=== PATIENT | female | born 1995 | race Caucasian/White ===

== ENCOUNTER 2019-02-03 13:48 | Emergency (ER) | payer OTHER ==
[~2019-02-03] VITALS: Wt 55.7 kg
[2019-02-03 13:52] VITALS: Wt 55.7 kg
--- NOTE | 2019-02-03 13:58 | EN ---
Date/Time of Note Date/Time of Note DATE: 02/03/19 TIME: 13:56 ER Progress Note 23-year-old female with headache, body aches, back pain, cough. SIRS criteria in triage. GOOD SANTIAGO MD Feb 03, 2019 13:58
[2019-02-03] MEDS ORDERED: morphine 4 MG/ML VIAL IV STA (14:36)
[2019-02-03] MEDS ORDERED: ONDANSETRON 4 MG INJ IV STA (14:36)
[2019-02-03] MEDS ORDERED: SODIUM CHLORIDE 0.9% 1L BAG IV* STA (14:36)
[2019-02-03] MEDS ORDERED: ACETAMINOPHEN 500 MG TAB PO STA (14:36)
[2019-02-03] MEDS ORDERED: IBUPROFEN 600 MG TAB PO ONE (15:00)
--- NOTE | 2019-02-03 15:39 | ERD ---
ER Documentation Chief Complaint Chief Complaint HEADACHE CONGESTION AND BACK PAIN FOR THE PAST WEEK. MILD SOB . HPI This is a 23-year-old female with a nonsignificant past medical history presents ED with complaints of right low back pain and headache times 2 days. Admits to fevers and nausea. Denies cough, congestion, runny nose, sputum production, vomiting, diarrhea, cuts patient, hematemesis, melena, hematochezia, dysuria, hematuria and all other symptoms. No known drug allergies. ROS All systems reviewed and are negative except as per history of present illness. Allergies Allergies: Coded Allergies: No Known Allergy (Unverified , 02/03/19) FmHx Family History: No diabetes Physical Exam Vitals Vital Signs Date Temp Pulse Resp B/P (MAP) Pulse Ox O2 O2 Flow FiO2 Time Delivery Rate 02/03/19 98.9 73 16 99/53 (68) 100 Room Air 17:24 02/03/19 99.3 15:57 02/03/19 102.7 14:54 02/03/19 102.7 14:54 02/03/19 102.7 118 20 160/66 99 13:52 (97) Physical Exam Physical Exam Vitals signs: Reviewed by me. General: Well developed, well nourished, in no acute distress. Patient is awake and alert. Head: Normocephalic, atraumatic. Eyes: Normal conjunctiva, Pupils PERRLA, EOM intact grossly ENT: Pharynx is clear, Moist mucous membranes, external ears, nose and mouth normal, no tonsillar adenopathy, exudate or erythema, no kissing tonsils, no uvula deviation, tympanic membrane visualized bilaterally no bulging, erythema, purulent air-fluid line seen, normal nasal mucosa with no discharge Neck: Supple, no masses, lymphadenopathy or JVD Respiratory: Clear to auscultation bilaterally with no wheezing, rhonchi, rales, no distress Cardiovascular: RRR, no murmurs, rubs, or gallops Abdominal: Soft, non-tender, non-distended, no peritoneal signs : Deferred MSK: No edema, no unilateral swelling, 5/5 strength Back: No midline tenderness. Right CVA tenderness present Neurologic: Alert and oriented, moving all extremities, normal speech, no focal weakness, no cerebellar signs. Normal mentation Skin: warm and dry, No rash Psych: Normal mood Result Diagram: 02/03/19 1455 02/03/19 1455 Results 24 hrs Laboratory Tests Test 02/03/19 14:55 02/03/19 15:01 02/03/19 15:08 White Blood Count 13.0 10^3/ul Red Blood Count 4.34 10^6/ul Hemoglobin 13.2 g/dl Hematocrit 39.4 % Mean Corpuscular Volume 90.8 fl Mean Corpuscular Hemoglobin 30.4 pg Mean Corpuscular 33.5 g/dl Hemoglobin Concent Red Cell Distribution Width 13.2 % Platelet Count 278 10^3/UL Mean Platelet Volume 9.4 fl Immature Granulocytes % 0.300 % Neutrophils % 90.9 % Lymphocytes % 3.5 % Monocytes % 5.2 % Eosinophils % 0.0 % Basophils % 0.1 % Nucleated Red Blood Cells % 0.0 /100WBC Immature Granulocytes # 0.040 10^3/ul Neutrophils # 11.8 10^3/ul Lymphocytes # 0.5 10^3/ul Monocytes # 0.7 10^3/ul Eosinophils # 0.0 10^3/ul Basophils # 0.0 10^3/ul Nucleated Red Blood Cells # 0.0 10^3/ul Prothrombin Time 14.2 Sec Prothrombin Time Ratio 1.1 INR International 1.09 Normalized Ratio Activated Partial Thromboplast 26.1 Sec Time Urine Color YELLOW Urine Clarity CLOUDY Urine pH 7.0 Urine Specific [place] 1.005 Urine Ketones NEGATIVE mg/dL Urine Nitrite NEGATIVE mg/dL Urine Bilirubin NEGATIVE mg/dL Urine Urobilinogen NEGATIVE mg/dL Urine Leukocyte Esterase NEGATIVE [place]/ul Urine Microscopic RBC 2 /HPF Urine Microscopic WBC 8 /HPF Urine Squamous Epithelial Cells MANY /HPF Urine Bacteria FEW /HPF Urine Hemoglobin 1+ mg/dL Urine Glucose NEGATIVE mg/dL Urine Total Protein NEGATIVE mg/dl Sodium Level 137 mmol/L Potassium Level 3.7 mmol/L Chloride Level 102 mmol/L Carbon Dioxide Level 19 mmol/L Anion Gap 16 Blood Urea Nitrogen 8 mg/dl Creatinine 0.57 mg/dl Est Glomerular Filtrat > 60 mL/min Rate mL/min Glucose Level 126 mg/dl Calcium Level 9.8 mg/dl Total Bilirubin 0.6 mg/dl Direct Bilirubin 0.00 mg/dl Indirect Bilirubin 0.6 mg/dl Aspartate Amino Transf (AST/SGOT) 30 IU/L Alanine 13 IU/L Aminotransferase (ALT/SGPT) Alkaline Phosphatase 78 IU/L Troponin I < 0.012 ng/ml Total Protein 8.4 g/dl Albumin 4.6 g/dl Globulin 3.80 g/dl Albumin/Globulin Ratio 1.21 Lipase 86 U/L POC Venous Lactate 1.5 mmol/L POC Beta HCG, Qualitative NEGATIVE Current Medications Medications Dose Sig/Kenzie Start Time Status Last (Trade) Ordered Route PRN Stop Time Admin Dose Reason Admin Sodium 1,670 ml BOLUS OVER 2 02/03/19 DC 02/03/19 Chloride HOURS STAT 14:36 14:54 (NS) IV* 02/03/19 14:49 Morphine 4 mg ONCE STAT 02/03/19 DC 02/03/19 Sulfate IV 14:36 14:55 (morphine) 02/03/19 14:49 Ondansetron 4 mg ONCE STAT 02/03/19 DC 02/03/19 HCl (Zofran IV 14:36 14:55 Inj) 02/03/19 14:49 1,000 mg ONCE STAT 02/03/19 DC 02/03/19 Acetaminophen PO 14:36 14:54 (Tylenol 02/03/19 14:49 Tab) Ibuprofen 600 mg ONCE ONCE 02/03/19 DC 02/03/19 (Motrin) PO 15:00 14:54 02/03/19 15:01 Ceftriaxone 50 ml @ ONCE STAT 02/03/19 DC 02/03/19 Sodium 100 mls/hr IVPB 15:52 16:11 02/03/19 16:21 Procedures/MDM EKG, MONITORS, & DIAGNOSTIC IMAGING: EKG read by juliae: Rate/Rhythm: Regular rate and rhythm at a rate of 100 Intervals: Normal Impression: No evidence of ischemia or arrhythmia No ST elevation, no peak T waves, no widened QRS, no QT interval prolongation [place] [id number] Radiology Main Line: [phone] DIAGNOSTIC IMAGING REPORT Patient: NAFISA LAU : 1995 Age: 23 Sex: F MR #: [id number] DOS: 02/03/19 1436 Ordering MD: AMARILIS STOKES PA-C Location: [facility] Room/Bed: PROCEDURE: XR Chest. CLINICAL INDICATION: Fever TECHNIQUE: Single portable AP view of the chest was obtained COMPARISON: none FINDINGS: Lungs are unchanged. No pleural effusion or pneumothorax. Heart and mediastinum are stable. ... No acute musculoskeletal abnormalities. Lines and tubes are unchanged. IMPRESSION: No acute abnormalities. RPTAT: AA Physician Nikky Date Time Electronically viewed and signed by Krzysztof Gr Physician on 02/03/2019 15:43 RB/ CC: AMARILIS STOKES PA-C [id number] [place] [id number] Radiology Main Line: [phone] DIAGNOSTIC IMAGING REPORT Patient: NAFISA LAU : 1995 Age: 23 Sex: F MR #: [id number] DOS: 02/03/19 1555 Ordering MD: AMARILIS STOKES PA-C Location: [facility] Room/Bed: PROCEDURE: CT abdomen and pelvis without contrast. CLINICAL INDICATION: Right low back pain. Fevers. TECHNIQUE: Continues 2.5 mm axial images were obtained from the domes of the diaphragms to the inferior pubic rami. No oral or intravenous contrast was administered. The calculated dose length product (DLP) = 297.32 mGy-cm. Exam CTDlvol = 5.27 mGy. One or more of the following dose reduction techniques were used: Automated exposure control, adjustment of the mA and or KV according to patient size, or use of iterative reconstruction technique. One or more of the following dose reduction techniques were used: Automated exposure control, adjustment of the mA and or KV according to patient size, or use of iterative reconstruction technique. DICOM images are available. COMPARISON: None. FINDINGS: Lung bases are clear. No pleural pericardial fluid is seen. Liver, gallbladder, pancreas, spleen, adrenals, and kidneys are within normal limits. There is no renal calculi or obstructive uropathy. Aorta is normal in caliber. No pathologically enlarged mesenteric lymph nodes are seen. The stomach and small bowel loops are within normal limits. Is no small bowel dilatation or obstruction. No free fluid, free air, abscess is noted in the upper abdomen CT pelvis: Images through the pelvis demonstrate no free fluid, free air, abscess. Bladder is normally distended grossly unremarkable. Uterus and adnexa are within normal limits. Evaluation of the colon demonstrates no dive rticulosis, diverticulitis or acute colitis. There is moderate constipation. Normal appendix and terminal ileum are identified. There are no pathologically enlarged iliac chain lymph nodes. No destructive bony lesions are seen. IMPRESSION: 1. No evidence of renal calculi or obstructive uropathy. 2. Normal appendix and terminal ileum. 3. Mild constipation. No colitis RPTAT: HH .Gee Kearney MD, Date Time Electronically viewed and signed by .Gee Kearney MD, on 02/03/2019 18:20 .W/ CC: AMARILIS STOKES PA-C [id number] LAB INTERPRETATION: CBC remarkable for an elevated WBC of 13.0, elevated neutrophil percentage 90.9 Chemistry shows no evidence of significant electrolyte abnormalities or renal insufficiency, mildly elevated anion gap 16 Liver function test shows no evidence of acute biliary or hepatic dysfunction Coagulation study showed no concerning coagulopathy Lipase shows no evidence of acute pancreatitis Cardiac biomarkers show no evidence of acute myocardial injury or coronary ischemia Urine negative Lactate 1.5 Urinalysis shows 8 WBCs, 2 RBCs, Flu negative Urine culture and blood cultures pending ER COURSE: The patient was given IV normal saline, IV Rocephin, Tylenol, ibuprofen, morphine and Zofran The medication was well tolerated and the patient reports improvement in symptoms. The patient was stable throughout ED course. I kept the patient and/or family informed of laboratory and diagnostic imaging results throughout the emergency room course. The patient was promptly evaluated and a treatment plan was devised based on H&P and other data. This plan was discussed with the patient who agreed and had no further questions or concerns prior to discharge. MEDICAL DECISION MAKING: This is a 23-year-old female with a nonsignificant past medical history presents ED with complaints of right low back pain and headache times 2 days. Upon examining patient I immediately activated a code sepsis as patient did meet Sirs criteria. Patient's lactate was not elevated so I thus have stopped sepsis workup. Physical examination is remarkable for some right CVA tenderness and given patient's elevated temperature this likely could be pyelonephritis. Blood work in the emergency department shows a mildly elevated WBC with an increased neutrophil percentage. Urine shows 8 WBCs and 2 RBCs. Patient was given 1 g of Rocephin in the emergency department. Will treat patient for pyelonephritis. CT of the abdomen and pelvis is unremarkable. At this time there is no emergency. No evidence of sepsis, meningitis, pneumonia, appendicitis, small bowel obstruction, perforated viscus, cholecystitis, pancreatitis, septic stone, obstructive pyelonephritis, among others. Vitals are stable patient can be managed close outpatient follow-up. Advised patient follow-up with her primary care next 48 hours. Return to ED with any worsening symptoms DISPOSITION PLAN: We discussed follow up with the patient's primary care doctor within 24 to 48 hours. Patient counseled regarding my diagnostic impression and care plan. Prior to discharge all questions answered. Pt agrees with treatment plan and u nderstands strict return precautions. Precautionary instructions provided including instructions to return to the ER if not improving or for any worsening or changing symptoms or concerns. SPECIALIST FOLLOW UP RECOMMENDED: None Patient has been advised to follow up with primary care in 1-2 days. Disclaimer: Inadvertent spelling and grammatical errors are likely due to EHR/dictation software use and do not reflect on the overall quality of patient care. Also, please note that the electronic time recorded on this note does not necessarily reflect the actual time of the patient encounter. Departure Diagnosis: Primary Impression: Pyelonephritis Condition: Stable Patient Instructions: Pyelonephritis, Female (Adult) Referrals: [facility] Additional Instructions: Patient advised to return to the ED immediately for new or worsening symptoms. Patient advised to follow up with primary care provider in the next 24-48 hours. Patient verbalized understanding and agrees with treatment plan and course of action. If patient has no primary care they may follow up with one of the community clinics listed on the following page or one of the options listed below [facility] + [address] [address] or [facility] [address] [place] [address] or [facility] [address] [place] [address] AMARILIS STOKES PA-C Feb 03, 2019 15:39
[2019-02-03] MEDS ORDERED: CEFTRIAXONE 1 GM/50 ML (PMX) 50 ML IVPB STA (15:52)
[2019-02-03] MEDS ORDERED: IBUP-1542 PO (18:25)
[2019-02-03] MEDS ORDERED: CIPR500T4 PO (18:25)
[2019-02-03] MEDS ORDERED: HYDR-4011 PO (18:25)
[2019-02-03 18:26] VITALS: BP 104/60; PULSE 68; RESP 16
== END 2019-02-03 18:33 | disposition home or self-care (01) ==
LOC: FTE 13:48
DX: N12 Tubulo-interstitial nephritis, not specified as acute or chronic (principal); R50.9 Fever, unspecified; R06.02 Shortness of breath
CPT/HCPCS: 36415; 71045; 74176; 80053; 81001; 81025; 83605; 83690; 84484; 85025; 85610; 85730; 87040; 87086; 87400; 93005; 96361; 96365; 96375; J0696; J2270; J2405; J7030; Z7502; Z7610